=== PATIENT | female | born 1995 | race Caucasian/White ===

== ENCOUNTER 2017-05-25 09:52 | Emergency (ER) | payer SELFPAY ==
[~2017-05-25] VITALS: Ht 160 cm; Wt 61.2 kg
[2017-05-25] MEDS ORDERED: DEXAMETHASONE PF 10 MG/ML (DECADRON) VIAL IM STA (10:09)
[2017-05-25] MEDS ORDERED: KETOROLAC 60 MG/2 ML VIAL IM STA (10:09)
--- NOTE | 2017-05-25 10:15 | ED General ---
General Chief Complaint: Cough/Cold/Flu Symptoms Stated Complaint: BODY ACHES,NECK AND THROAT PAIN Source of Information: Patient Exam Limitations: No Limitations History of Present Illness Time Seen by Provider: 09:58 Initial Comments Here with report of sore throat, fever and body aches, nasal congestion and bilateral ear pain. No report of cough or breathing problems. She has not taken anything for the fever pain today. Reports that she is very uncomfortable. Reports waking up this way this morning. She does work in the public. Denies nausea or vomiting. Timing/Duration: 4-6 Hours Severity: Moderate Associated Systoms: No Cough, Fever/Chills, No Nausea/Vomiting, No Shortness of Air Allergies and Home Medications Allergies Coded Allergies: No Known Drug Allergies (Unverified , 05/25/17) Home Medications No Active Prescriptions or Reported Meds Constitutional: see HPI EENTM: ear pain, nose congestion, see HPI, throat pain, throat swelling Respiratory: No cough, No short of breath Cardiovascular: no symptoms reported Gastrointestinal: no symptoms reported Genitourinary: no symptoms reported Musculoskeletal: see HPI Skin: no symptoms reported Past Qokurzz-Wublvw-Wpyvre Hx Patient Social History Alcohol Use: Denies Use Recreational Drug Use: No Smoking Status: Never a Smoker Recent Foreign Travel: No Contact w/Someone Who Travel: No Surgeries HX Surgeries: Yes Surgeries: Appendectomy Respiratory Hx Respiratory Disorders: No Cardiovascular Hx Cardiac Disorders: No Neurological Hx Neurological Disorders: No Genitourinary Hx Genitourinary Disorders: No Gastrointestinal Hx Gastrointestinal Disorders: No Musculoskeletal Hx Musculoskeletal Disorders: No Endocrine Hx Endocrine Disorders: No Reviewed Nursing Assessment Reviewed/Agree w Nursing PMH: Yes Family Medical History Significant Family History: No Pertinent Family Hx Physical Exam Vital Signs Capillary Refill : General Appearance: WD/WN, Mild Distress (throat pain) HEENT: Pharyngeal Erythema, Other (few posterior lesions posterior pharynx with moderate redness and slight uvular swelling. Difficulty with swallowing, talking or breathing.) Neck: Normal Inspection, Non Tender Respiratory: Lungs Clear, Normal Breath Sounds Cardiovascular: No Murmur, Tachycardia Gastrointestinal: Non Tender, Soft Neurologic/Psychiatric: Alert, Oriented x3 Progress/Results/Core Measures Progress Note : Progress Note Seen and evaluated. We discussed a variety evaluation options and treatments as this may be strep pharyngitis versus viral pharyngitis. Patient is in a moderate amount of pain. Ultimately we decided on Toradol 60 mg IM and Decadron 10 mg IM. We will prescribe outpatient antibiotics. Discharged home with return precautions. Patient verbalize understanding instructions and agreement with plan. Departure Impression Impression: Primary Impression: Pharyngitis Qualified Codes: J02.9 - Acute pharyngitis, unspecified Disposition: HOME, SELF-CARE Condition: Stable Departure-Patient Inst. Decision time for Depature: 10:14 Referrals: NO,LOCAL PHYSICIAN (PCP/Family) Primary Care Physician Patient Instructions: Bacterial Upper Respiratory Infection, Adult (DC), Viral Pharyngitis (DC), Fever, Adult (DC) Add. Discharge Instructions: All discharge instructions reviewed with patient and/or family. Voiced understanding. You may take ibuprofen 800 mg every 8 hours as needed for pain and fever. You may also take Tylenol 1000 mg every 8 hours as needed for fever or pain. Drink plenty of fluids. Take other medications as prescribed. Follow-up with your Dr. in a few days for recheck. Return for worse pain, fever, vomiting, weakness , breathing or swallowing problems or other concerns as needed. Scripts Amoxicillin (Amoxicillin) 500 Mg Capsule 500 MG PO TID, #21 CAP 0 Refills Prov: MINERVA CRISTINA MD 05/25/17 Work/School Note: Local Medical Staff Listing MINERVA CRISTINA MD May 25, 2017 10:15
[2017-05-25] MEDS ORDERED: AMOX500C2 PO (10:16)
[2017-05-25 10:29] VITALS: BP 123/78
== END 2017-05-25 10:29 | disposition home or self-care (01) ==
LOC: ER 09:55
DX: J02.9 Acute pharyngitis, unspecified (principal); Z90.49 Acquired absence of other specified parts of digestive tract
CPT/HCPCS: 99284

== ENCOUNTER → 2017-10-09 | Outpatient (CLI) | payer OTHER ==
[~2017-10-09] MED LIST: AMOX500C2 PO
--- NOTE | 2017-10-09 11:14 | Diagnostic Imaging Report ---
First trimester OB ultrasound. INDICATION: Dating. FINDINGS: There is a normal-appearing single intrauterine . An embryo is seen with cardiac activity at 165 beats per minute. The crown-rump length is at 9 weeks and 2 days. ROCKY is 05/12/2018. There is no subchorionic hemorrhage. The right ovary appears normal. The left ovary is obscured by bowel gas.. IMPRESSION: Live single intrauterine . Dictated by: Dictated on workstation # [id number]
== END ==
LOC: RAD 10:39
PROVIDERS: ATTEND Family Medicine
DX: Z34.01 Encounter for supervision of normal first pregnancy, first trimester (principal); Z3A.09 9 weeks gestation of pregnancy; Z12.4 Encounter for screening for malignant neoplasm of cervix
CPT/HCPCS: 76801

== ENCOUNTER 2018-02-20 16:32 | Outpatient (CLI) | payer MEDICAID | END 2018-02-20 17:55 | disposition home or self-care (01) | LOC: WSo 16:32 | PROVIDERS: ATTEND Obstetrics & Gynecology | DX: Z31.82 Encounter for Rh incompatibility status (principal) | CPT/HCPCS: 96372 ==

== ENCOUNTER 2018-04-18 19:13 | Outpatient (CLI) | payer MEDICAID ==
[~2018-04-18] VITALS: Ht 162.6 cm; Wt 83.9 kg
[2018-04-18 19:17] VITALS: BP 126/81
[2018-04-18] MEDS ORDERED: PREN-142 PO (19:44)
[2018-04-18] MEDS ORDERED: SERT100T PO (19:45)
--- NOTE | 2018-04-19 11:56 | Physician Query-Final Dx ---
MINDY DEUTSCH 04/19/18 1156: Clinic Account Progress/Dx Physician Query: Please give diagnosis Date of Service Apr 18, 2018 at 19:13 SHAN FOSS MD 04/19/18 1259: Clinic Account Progress/Dx DIAGNOSIS: Diagnosis Decreased movement MINDY DEUTSCH Apr 19, 2018 11:56 SHAN FOSS MD Apr 19, 2018 12:59
[2018-05-01] MEDS ORDERED: OXYC-471 PO (07:20)
[2018-05-01] MEDS ORDERED: IBUP-1780 PO (07:20)
[2018-05-01] MEDS ORDERED: DOCU100C37 PO (07:20)
== END 2018-04-18 19:50 | disposition home or self-care (01) ==
LOC: LDRP 19:13 → WSo 19:13
PROVIDERS: ATTEND Obstetrics & Gynecology
DX: O36.8130 Decreased fetal movements, third trimester, not applicable or unspecified (principal); Z3A.37 37 weeks gestation of pregnancy
CPT/HCPCS: 99213

== ENCOUNTER 2018-04-29 22:31 | Inpatient (IN) | payer MEDICAID ==
[~2018-04-29] VITALS: Ht 162.6 cm; Wt 86.3 kg
[~2018-04-29 22:31] MED LIST changes: +PREN-142 PO; +SERT100T PO
[2018-04-29 22:45] VITALS: BP 124/81
--- OUTSIDE RECORDS SUMMARY | 2018-04-29 22:50 | XMS REPORT ---
Author Author ABDULLAHI CARRERO Organization [facility] Address [address] [place] [address] Care Team Providers Care Client Support Consultant Name Role Phone ABDULLAHI CARRERO Unavailable PROBLEMS Type Condition ICD9-CM Code [id number] Code Onset Dates Condition Status SNOMED Code Problem Herpes simplex vulvovaginitis A60.04 Active 21174698 ALLERGIES No Known Allergies ENCOUNTERS Encounter Location Date Diagnosis [place] [id number] [place] [address] 7860 Oct, [place] [address] [id number] [place] [address] 12573[address] 2638 Sep, Pap smear for cervical cancer screening Z12.4 ; Normal , first Z34.00 ; Herpesviral infection, unspecified B00.9 ; Other viral diseases complicating , first trimester O98.511 and 8 weeks gestation of Z3A.08 [place] [id number] [place] [address] 13967- 4201 Sep, [place] [address] [id number] [place] [address] 81014- 5367 Aug, Screening for deficiency anemia Z13.0 [place] [id number] [place] [address] 03090- 4023 Aug, [place] [id number] [place] [address] 33302- 8784 Aug, [place] [address] [address] Aug, [place] [id number] [place] [address] 65983- 3106 Aug, Encounter for test, result unknown Z32.00 [place] [address] [facility] [id number] [place] [address] Jun, Sore throat J02.9 and Strep pharyngitis J02.0 [facility] [address] [facility] [id number] [place] [address] May, Herpes simplex vulvovaginitis A60.04 and Sore throat J02.9 IMMUNIZATIONS No Known Immunizations SOCIAL HISTORY Never Assessed REASON FOR VISIT OB-intake -- alaina malcolm PLAN OF CARE Activity Details Follow Up 4 Weeks Reason: Pending Test PAP REFLEX TO HPV IF ASCUS VITAL SIGNS Height 63 in 2017-10-01 Weight 139.4 lbs 2017-10-01 Temperature 99.8 degrees Fahrenheit 2017-10-01 Heart Rate 78 bpm 2017-10-01 Respiratory Rate 18 2017-10-01 BMI 24.694 kg/m2 2017-10-01 Blood pressure systolic 126 mmHg 2017-10-01 Blood pressure diastolic 78 mmHg 2017-10-01 MEDICATIONS Medication Instructions Dosage Frequency Start Date End Date Duration Status Vitamins - (Dis) Active RESULTS No Results PROCEDURES Procedure Date Ordered Result Body Site No Charge Oct 01, 2017 LAB NOT BILLED BY [facility] Oct 01, 2017 URINALYSIS, AUTO, W/O SCOPE Oct 01, 2017 SPECIMEN HANDLING Oct 01, 2017 VENIPUNCT, ROUTINE* Oct 01, 2017 INSTRUCTIONS MEDICATIONS ADMINISTERED No Known Medications MEDICAL (GENERAL) HISTORY Type Description Date Medical History Genital Herpes Medical History Seasonal allergies Surgical History Appendectomy 2006 Surgical History Benign tumors removed from right leg 2002 Hospitalization History post appe surgery 2005
--- OUTSIDE RECORDS SUMMARY | 2018-04-29 22:50 | XMS REPORT ---
Author Author FENG COBB [facility] Address [address] [place] [address] Care Team Providers Care Slot Attendant Name Role Phone FENG COBB Unavailable PROBLEMS Type Condition ICD9-CM Code GBQ08-EM Code Onset Dates Condition Status SNOMED Code Problem Herpes simplex vulvovaginitis A60.04 Active 61995810 ALLERGIES No Known Allergies ENCOUNTERS Encounter Location Date Diagnosis [place] [id number] [place] [address]- [address] Oct, [place] [id number] [place] [address] 74[address]- 4[address] Sep, Pap smear for cervical cancer screening Z12.4 ; Normal , first Z34.00 ; Herpesviral infection, unspecified B00.9 ; Other viral diseases complicating , first trimester O98.511 and 8 weeks gestation of Z3A.08 [place] [address] [place] [address] [id number] [place] [address] 20993- 2719 Sep, [place] [address] [id number] [place] [address] 45673- 3065 Aug, Screening for deficiency anemia Z13.0 [place] [address] [address] [id number] [place] [address] 44876- 5216 Aug, [place] [address] [place] [address] [id number] [place] [address] 87309- 8830 Aug, [place] [address] [place] [address] [id number] [place] [address] 56659- 1051 Aug, [place] [address] [place] [address] [id number] [place] [address] 52917- 7357 Aug, Encounter for test, result unknown Z32.00 [facility] [address] [facility] [id number] [place] [address] Jun, Sore throat J02.9 and Strep pharyngitis J02.0 [facility] [address] [facility] [id number] [place] [address] May, Herpes simplex vulvovaginitis A60.04 and Sore throat J02.9 IMMUNIZATIONS No Known Immunizations SOCIAL HISTORY Never Assessed REASON FOR VISIT pt was diagnosed with genital herpes 5 years ago. last outbreak was 1 year ago. currently pt is having dysuria, vaginal itching, and a lot of swelling. she is wanting treated for herpes today. doesnt have a PCP. bra[place]en PLAN OF CARE Activity Details Follow Up prn Reason: VITAL SIGNS Height 63 in 2017-06-08 Weight 135.0 lbs 2017-06-08 Temperature 98.6 degrees Fahrenheit 2017-06-08 Heart Rate 80 bpm 2017-06-08 Respiratory Rate 18 2017-06-08 BMI 23.91 kg/m2 2017-06-08 Blood pressure systolic 118 mmHg 2017-06-08 Blood pressure diastolic 68 mmHg 2017-06-08 MEDICATIONS Medication Instructions Dosage Frequency Start Date End Date Duration Status Acyclovir 400 mg orally 3 times a day one tab 8h May, Jun, 10 days Active RESULTS No Results PROCEDURES No Known procedures INSTRUCTIONS MEDICATIONS ADMINISTERED No Known Medications MEDICAL (GENERAL) HISTORY Type Description Date Medical History Genital Herpes Medical History Seasonal allergies Surgical History Appendectomy 2006 Surgical History Benign tumors removed from right leg 2002 Hospitalization History post appe surgery 2005
--- OUTSIDE RECORDS SUMMARY | 2018-04-29 22:51 | XMS REPORT ---
Author Author ABDULLAHI CARRERO Organization [facility] Address [address] [place] [address] Care Team Providers Care Cancer Spec Name Role Phone ABDULLAHI CARRERO Unavailable PROBLEMS Type Condition ICD9-CM Code WEU70-XA Code Onset Dates Condition Status SNOMED Code Problem Herpes simplex vulvovaginitis A60.04 Active 22651298 ALLERGIES No Information ENCOUNTERS Encounter Location Date Diagnosis [facility] [id number] [place] [address] 54395- 7762 Oct, [place] [address] [place] [address] [id number] [place] [address] 66813- 3574 Sep, Pap smear for cervical cancer screening Z12.4 ; Normal , first Z34.00 ; Herpesviral infection, unspecified B00.9 ; Other viral diseases complicating , first trimester O98.511 and 8 weeks gestation of Z3A.08 [place] [address] [id number] [place] [address] 78324- 2149 Sep, [place] [address] [place] [address] [id number] [place] [address] 65316- 6444 Aug, Screening for deficiency anemia Z13.0 [place] [id number] [place] [address] 33948- 4585 Aug, [place] [id number] [place] [address] 80899- 6389 Aug, [place] [address] 0[address]94- 5413 Aug, [place] [address] [place] [address] [id number] [place] [address] 00442- 1017 Aug, Encounter for test, result unknown Z32.00 [place] [address] [facility] [id number] [place] [address] Jun, Sore throat J02.9 and Strep pharyngitis J02.0 [facility] [address] [facility] [id number] [place] [address] May, Herpes simplex vulvovaginitis A60.04 and Sore throat J02.9 IMMUNIZATIONS No Known Immunizations SOCIAL HISTORY Never Assessed REASON FOR VISIT OB PLAN OF CARE VITAL SIGNS MEDICATIONS Unknown Medications RESULTS No Results PROCEDURES No Known procedures INSTRUCTIONS MEDICATIONS ADMINISTERED No Known Medications MEDICAL (GENERAL) HISTORY Type Description Date Medical History Genital Herpes Medical History Seasonal allergies Surgical History Appendectomy 2006 Surgical History Benign tumors removed from right leg 2002 Hospitalization History post appe surgery 2006
--- OUTSIDE RECORDS SUMMARY | 2018-04-29 22:51 | XMS REPORT ---
Author Author ABDULLAHI CARRERO Organization [facility] Address [address] [place] [address] Care Team Providers Care Wood Grinder Operator Name Role Phone ABDULLAHI CARRERO Unavailable PROBLEMS Type Condition ICD9-CM Code IYP12-DJ Code Onset Dates Condition Status SNOMED Code Problem Herpes simplex vulvovaginitis A60.04 Active 51730214 ALLERGIES No Information ENCOUNTERS Encounter Location Date Diagnosis [place] [address] [place] [address] [id number] [place] [address] 07944- 0922 Oct, [place] [id number] [place] [address] 66356- 0521 Sep, Pap smear for cervical cancer screening Z12.4 ; Normal , first Z34.00 ; Herpesviral infection, unspecified B00.9 ; Other viral diseases complicating , first trimester O98.511 and 8 weeks gestation of Z3A.08 [place] [address] [id number] [place] [address] 60699- 6051 Sep, [place] [address] [place] [address] [id number] [place] [address] 35752- 0807 Aug, Screening for deficiency anemia Z13.0 [place] [address] [address] [id number] [place] [address] 63206- 9754 Aug, [place] [address] [id number] [place] [address] 19010- 2642 Aug, [place] [address] 18[address]- 8005 Aug, [place] [address] [place] [address] [id number] [place] [address] 59822- 1961 Aug, Encounter for test, result unknown Z32.00 [place] [address] [facility] [id number] [place] [address] Jun, Sore throat J02.9 and Strep pharyngitis J02.0 [facility] [address] [facility] [id number] [place] [address] May, Herpes simplex vulvovaginitis A60.04 and Sore throat J02.9 IMMUNIZATIONS No Known Immunizations SOCIAL HISTORY Never Assessed REASON FOR VISIT PLAN OF CARE VITAL SIGNS MEDICATIONS Unknown Medications RESULTS No Results PROCEDURES No Known procedures INSTRUCTIONS MEDICATIONS ADMINISTERED No Known Medications MEDICAL (GENERAL) HISTORY Type Description Date Medical History Genital Herpes Medical History Seasonal allergies Surgical History Appendectomy 2006 Surgical History Benign tumors removed from right leg 2002 Hospitalization History post appe surgery 2006
--- OUTSIDE RECORDS SUMMARY | 2018-04-29 22:51 | XMS REPORT ---
Author Author LINSEYOPHELIAMIGUEL ANGEL [facility] Address [address] [place] [address] Care Team Providers Care Counter Maker Name Role Phone MIGUEL ANGEL STILES Unavailable PROBLEMS Type Condition ICD9-CM Code VYE30-LH Code Onset Dates Condition Status SNOMED Code Problem Herpes simplex vulvovaginitis A60.04 Active 84247367 ALLERGIES No Known Allergies ENCOUNTERS Encounter Location Date Diagnosis [place] [address] [place] [id number] [place] [address] 75050- 5186 Oct, [place] [address] [place] [address] [id number] [place] [address] 78877- 2430 Sep, Pap smear for cervical cancer screening Z12.4 ; Normal , first Z34.00 ; Herpesviral infection, unspecified B00.9 ; Other viral diseases complicating , first trimester O98.511 and 8 weeks gestation of Z3A.08 [place] [id number] [place] [address] 86387- 5998 Sep, [place] [address] [id number] [place] [address] 88936- 1182 Aug, Screening for deficiency anemia Z13.0 [place] [id number] [place] [address] 07624- 4156 Aug, [place] [id number] [place] [address] 69152- 3304 Aug, [place] [address] 74[address]- 8224 Aug, [place] [address] [id number] [place] [address] 45925- 7147 Aug, Encounter for test, result unknown Z32.00 [place] [address] [facility] [id number] [place] [address] Jun, Sore throat J02.9 and Strep pharyngitis J02.0 [facility] [address] [facility] [id number] [place] [address] May, Herpes simplex vulvovaginitis A60.04 and Sore throat J02.9 IMMUNIZATIONS No Known Immunizations SOCIAL HISTORY Never Assessed REASON FOR VISIT sore throat/ear pain , white puss pocket in throat, fever, swollen lymph nodes - ---[place],[facility] PLAN OF CARE Activity Details Follow Up prn Reason:needs to est care VITAL SIGNS Height 63 in 2017-07-02 Weight 134.7 lbs 2017-07-02 Temperature 98.9 degrees Fahrenheit 2017-07-02 Heart Rate 77 bpm 2017-07-02 Respiratory Rate 18 2017-07-02 BMI 23.86 kg/m2 2017-07-02 Blood pressure systolic 116 mmHg 2017-07-02 Blood pressure diastolic 69 mmHg 2017-07-02 MEDICATIONS Medication Instructions Dosage Frequency Start Date End Date Duration Status Amoxicillin 500 mg Orally every 12 hrs 1 capsule 12h Jun, Jun, 10 day(s) Active RESULTS No Results PROCEDURES Procedure Date Ordered Result Body Site STREP A ASSAY W/OPTIC Jul 02, 2017 INSTRUCTIONS MEDICATIONS ADMINISTERED No Known Medications MEDICAL (GENERAL) HISTORY Type Description Date Medical History Genital Herpes Medical History Seasonal allergies Surgical History Appendectomy 2006 Surgical History Benign tumors removed from right leg 2002 Hospitalization History post appe surgery 2005
[2018-04-29] MEDS ORDERED: D5 LR IV SOLUTION 1,000 ML IV ONE (22:54)
[2018-04-29] MEDS ORDERED: D5 LR IV SOLUTION 1,000 ML IV SCH (23:20)
[2018-04-29 23:27] LABS: BASOPHILS % (AUTO) 0 % (0-10); EOSINOPHILS # (AUTO) 0.1 10^3/uL (0.0-0.3); EOSINOPHILS % (AUTO) 1 % (0-10); HEMATOCRIT 33 % (35-52); HEMOGLOBIN 11.5 G/DL (11.5-16.0); LYMPHOCYTES # (AUTO) 2.1 X 10^3 (1.0-4.0); LYMPHOCYTES % (AUTO) 14 % (12-44); MEAN CORPUSCULAR HEMOGLOBIN 32 PG (25-34); MEAN CORPUSCULAR HGB CONC 35 G/DL (32-36); MEAN CORPUSCULAR VOLUME 91 FL (80-99); MEAN PLATELET VOLUME 11.3 FL (7.4-10.4); MONOCYTES # (AUTO) 1.4 X 10^3 (0.0-1.0); MONOCYTES % (AUTO) 9 % (0-12); NEUTROPHILS # (AUTO) 11.3 X 10^3 (1.8-7.8); NEUTROPHILS % (AUTO) 76 % (42-75); PLATELET COUNT 199 10^3/uL (130-400); RED BLOOD COUNT 3.62 10^6/uL (4.35-5.85); RED CELL DISTRIBUTION WIDTH 13.2 % (10.0-14.5); WHITE BLOOD COUNT 14.8 10^3/uL (4.3-11.0)
[2018-04-30] VITALS (62 sets, daily range): BP systolic 111–160; BP diastolic 50–86
[2018-04-30] MEDS ORDERED: SUFENTA 0.6MCG/ML BUPIVA 0.125 100 ML ONE (01:14)
[2018-04-30] MEDS ORDERED: hydrOXYzine (ATARAX) 10 MG TAB PO ONE (01:15)
[2018-04-30] MEDS ORDERED: BUPIVACAINE 0.25% 30 ML (SENSORCAINE) VIAL ONE (01:37)
[2018-04-30] MEDS ORDERED: fentaNYL INJECTION 100 MCG/2 ML AMP ONE (01:37)
[2018-04-30] MEDS ORDERED: LACTATED RINGERS 1,000 ML IV ONE ×2 (02:12)
[2018-04-30] MEDS ORDERED: NALOXONE 0.4 MG/ML 1 ML (NARCAN) VIAL IV PRN (02:15)
[2018-04-30] MEDS ORDERED: EPIDURAL (SUFENTA 0.6MCG/ML BUPIVA 0.125%) 100 ML BAG EPI PRN (02:15)
[2018-04-30] MEDS ORDERED: ONDANSETRON 4 MG/2 ML (SDV) Z0FRAN IV PRN (02:15)
[2018-04-30] MEDS ORDERED: ACETAMINOPHEN 500 MG TAB (TYLENOL) PO PRN (02:45)
[2018-04-30] MEDS ORDERED: OXYTOCIN/NORMAL SALINE 500 ML IV SCH ×2 (03:31→11:35)
[2018-04-30] MEDS ORDERED: CATHETER FLUSH 10 ML SYR IV SCH (06:00)
--- NOTE | 2018-04-30 07:05 | History & Physical ---
History and Physical Date Seen by Provider: Apr 30, 2018 Time Seen by Provider: 07:03 This patient is a 22-year-old 1 white female with a due date is April putting her at 30 8/2 weeks' gestation on admission. She reported rupture membranes at 9 p.m. on April 29. She presented with overt rupture membranes. She was having occasional contraction. She denies any bleeding. She's had no problems with this . GBS culture was negative. Allergies are none Medications are vitamins and Zoloft Past medical history, past surgical history, obstetric history, family history, and social histories are per the antepartum record HEENT exam is normal Neck is supple no lymphadenopathy no thyromegaly Abdomen is gravid soft nontender nondistended Extremities show no clubbing cyanosis. There is no Homans sign. Pelvic exam currently shows a cervix 5 cm dilated 80 percent effaced anterior somewhat soft presenting part is the vertex at the -1 station monitor shows contractions every 2-4 minutes with Pitocin now 18 mU/m heart rate pattern is reassuring with frequent accelerations. Very occasional variable Laboratory Tests 04/29/18 23:10 Assessment and plan term 38+ weeks gestation with spontaneous rupture membranes of clear fluid. Patient presented with irregular contractions she has now been augmented with Pitocin as progressing adequately. She has no epidural and is comfortable. Anticipation is for vaginal delivery PROM at 38+ weeks gestation Allergies and Home Medications Allergies Coded Allergies: No Known Drug Allergies (Unverified , 05/25/17) Home Medications Vit No.124/Iron/FA 1 Each Tablet, 1 EACH PO DAILY, (Reported) Sertraline HCl 100 Mg Tablet, 100 MG PO DAILY, (Reported) Patient Home Medication List Home Medication List Reviewed: Yes Clinical Quality Measures DVT/VTE Risk/Contraindication: Risk Factor Score Per Nursin RFS Level Per Nursing on Admit: 1=Low/No VTE PPX SHAN FOSS MD Apr 30, 2018 7:05 am
[2018-04-30] MEDS ORDERED: LIDOCAINE/EPI 2% 1:200,00 (XYLOCAINE) 10 ML VIAL ONE (10:03)
[2018-04-30] MEDS ORDERED: MEASLES,MUMPS,RUBELLA 1 EA INJ SC ONE (11:45)
[2018-04-30] MEDS ORDERED: ONDANSETRON 4 MG/2 ML (SDV) Z0FRAN IVP PRN (11:45)
[2018-04-30] MEDS ORDERED: BENZOCAINE/MENTHOL (DERMOPLAST) 56 ML CAN TP PRN (11:45)
[2018-04-30] MEDS ORDERED: TETANUS,DIPTH,PERTUSS P/F (BOOSTRIX) 0.5 ML VIAL IM ONE (11:45)
[2018-04-30] MEDS: KETOROLAC 30 MG/ML VIAL IV SCH ×2 (13:15→20:30)
[2018-04-30] MEDS: oxyCODONE/APAP 5/325MG (PERCOCET 5) TABLET PO PRN ×2 (14:55→21:49)
--- NOTE | 2018-04-30 18:00 | OPERATIVE REPORT ---
DATE OF SERVICE: 04/30/2018 DELIVERY NOTE The patient delivered by term spontaneous vaginal delivery a viable female infant with Apgars of 5, 6 and 8 at 1, 5 and 10 minutes and with weight of 7 pounds 7 ounces, time of 10:31 and a cord blood pH of 7.13. There were fairly significant decels while the patient was pushing. She pushed less than 15 minutes. The infant was somewhat lethargic and required some resuscitation. The hydraulic design engineer was called as was respiratory therapy. The was bulb suctioned on delivery of the head and again on completion of delivery. The umbilical cord remained pulsatile for a couple of minutes after completion of delivery of the . The was dried and stimulated during that time. When the cord became pulseless, it was doubly clamped and the passed promptly to Carley Cortes, the pediatric nurse in attendance for delivery at the [facility] for resuscitation. The placenta was delivered spontaneously Neumann. It was normal with a 3-vessel cord. The cervix, vagina, rectum and perineum were examined and found to be intact except for a midline episiotomy that was performed at the patient's request when the hymen and the perineum began to tear and the patient was unable to expel the fetus. The episiotomy was performed and delivery ensued promptly. The episiotomy was repaired with a single suture of 3-0 Vicryl in the usual manner. Estimated blood loss for delivery was around 250 mL. The patient tolerated the delivery well as well as repair and she remained in the LDR. The baby had been taken stable to the full term nursery under the care of Sebastian harrison. Job ID: [id number] DocumentID: [id number] Dictated Date: 04/30/2018 12:09:59 Registered Radiation Therapist Date: 04/30/2018 17:59:34 Dictated By: SHAN FOSS MD MTDD
[2018-04-30] MEDS: DOCUSATE SODIUM 100 MG (COLACE) CAP PO SCH (20:30)
[2018-05-01 00:10] VITALS: BP 107/61
[2018-05-01] MEDS: KETOROLAC 30 MG/ML VIAL IV SCH (02:06)
[2018-05-01 04:25] VITALS: BP 127/74
[2018-05-01] MEDS ORDERED: CALCIUM CARBONATE 500 MG (TUMS) TAB.CHEW PO ONE (04:30)
--- NOTE | 2018-05-01 07:18 | Progress Note-Standard ---
Standard Progress Note Progress Notes/Assess & Plan Date Seen by Provider: May 01, 2018 Time Seen by Provider: 07:17 Progress/Assessment & Plan Patient is without complaint. She is ambulating, voiding, tolerating oral intake well, has good pain control. Patient denies chest pain, denies shortness of breath, denies nausea vomiting, and denies headache. Vital Signs 05/01/18 04:25 Temp 98.2 Pulse 96 Resp 18 B/P (MAP) 127/74 (91) Pulse Ox 97 O2 Delivery Room Air Vital signs are stable. Patient is afebrile. Fundus is firm below the umbilicus and nontender. Extremities show no clubbing or cyanosis. There is no Homans sign. Assessment and plan day number 1 status post term spontaneous vaginal delivery doing well. Plan is for routine convalescence care today and consider discharge home tomorrow SHAN FOSS MD May 01, 2018 7:18 am
[2018-05-01] MEDS ORDERED: DOCU100C37 PO (07:20)
[2018-05-01] MEDS ORDERED: IBUP-1780 PO (07:20)
[2018-05-01] MEDS ORDERED: OXYC-471 PO (07:20)
--- NOTE | 2018-05-01 07:21 | Discharge Instructions ---
Discharge Instructions Discharge Medications New, Converted or Re-Newed RX: RX on Chart Patient Instructions Patient Instructions: As directed Return to The Hospital For: As directed Activity & Diet Discharge Diet: No Restrictions Activity as Tolerated: No Orders-Post D/C & Referrals Follow Up Appt: Call to make follow up appt. for patient in 4 weeks. Activity Per routine post vaginal delivery instructions. Please call in RX to patient pharmacy. Diet as tolerated Patient may shower or tub bathe as desired. SHAN FOSS MD May 01, 2018 7:21 am
--- NOTE | 2018-05-01 07:57 | Anesthesia-Regional Post-Op ---
Regional Patient Condition Mental Status: Alert, Oriented x3 Circulation: Same as Pre-Op Headache: Absent Sensation: Full Recovery Motor Block: Absent Post Op Complications Complications None Follow Up Care/Instructions Patient Instructions None needed. Anesthesia/Patient Condition Patient is doing well, no complaints, stable vital signs, no apparent adverse anesthesia problems. No complications reported per nursing. CLAIRE PEREZ CRNA May 01, 2018 07:57
[2018-05-01 08:00] VITALS: BP 138/93
[2018-05-01] MEDS: IBUPROFEN 800 MG (MOTRIN) TAB PO SCH ×3 (08:08→20:09)
[2018-05-01] MEDS: DOCUSATE SODIUM 100 MG (COLACE) CAP PO SCH ×2 (08:08→20:09)
[2018-05-01 13:50] VITALS: BP_SYST 122; BP_SYST 128; BP_DIAS 83; BP_DIAS 87
[2018-05-01] MEDS: oxyCODONE/APAP 5/325MG (PERCOCET 5) TABLET PO PRN (14:02)
[2018-05-01] MEDS ORDERED: TETANUS,DIPTH,PERTUSS P/F (BOOSTRIX) 0.5 ML VIAL IM ONE (16:44)
[2018-05-01 20:07] VITALS: BP 127/82
[2018-05-02 03:18] VITALS: BP 122/79
[2018-05-02] MEDS: IBUPROFEN 800 MG (MOTRIN) TAB PO SCH ×3 (03:20→16:00)
--- NOTE | 2018-05-02 07:20 | Discharge Summary ---
Discharge Summary Term spontaneous vaginal delivery This patient is a 23-year-old G1 white female who was admitted in the late hours of April 29, 2018 due to spontaneous rupture membranes. She was observed through the night. She is arnaldo with some mild irregularity. She was augmented with Pitocin and subsequently had a term spontaneous vaginal delivery on April 30, 2018. The delivery was uncomplicated. The patient recovered uneventfully. On May 01, 2018 patient was without complaint. She is ambulating, voiding, tolerating oral intake well had good pain control and had routine convalescence care. Now on May 02 patient's day number 2 doing well again she is requesting discharge home she is ambulating, voiding, tolerating oral intake well has good pain control. Her baby may not be discharged and plastic a she will room in Principal diagnoses this hospitalization is term spontaneous vaginal delivery Secondary diagnoses are spontaneous PROM, Operation procedures include monitoring, IV fluids, epidural labor analgesia, term spontaneous vaginal delivery, midline episiotomy and repair. Patient was given appropriate discharge instructions verbally and in writing and a copy those are placed in the chart. Discharge medications are Percocet and Motrin and Colace. Patient is continue her own vitamins Clinical Quality Measures DVT/VTE Risk/Contraindication: Risk Factor Score Per Nursin RFS Level Per Nursing on Admit: 1=Low/No VTE PPX SHAN FOSS MD May 02, 2018 07:20
[2018-05-02] MEDS: DOCUSATE SODIUM 100 MG (COLACE) CAP PO SCH (08:38)
[2018-05-02 08:40] VITALS: BP 121/70
[2018-05-02] MEDS ORDERED: WITCH HAZEL(TUCKS) 40 EA JAR TOP PRN (09:00)
[2018-05-02] MEDS ORDERED: DIBUCAINE (NUPERCAINAL) 1% OINT 30 GM TOP PRN (09:00)
[2018-05-02] MEDS ORDERED: DIBUCAINE (NUPERCAINAL) 1% OINT 30 GM ONE (09:03)
[2018-05-02] MEDS ORDERED: WITCH HAZEL(TUCKS) 40 EA JAR ONE (09:03)
[2018-05-02] MEDS ORDERED: POLYETHYLENE GLYCOL 17 GM (MIRALAX) PACK PO ONE (15:15)
[2018-05-02] MEDS ORDERED: POLYETHYLENE GLYCOL 17 GM (MIRALAX) PACK ONE (15:19)
[2018-05-02 16:00] VITALS: BP 120/70
[2018-05-02] MEDS: oxyCODONE/APAP 5/325MG (PERCOCET 5) TABLET PO PRN (16:04)
[2018-05-02 17:00] VITALS: BP 120/70
== END 2018-05-02 17:00 | disposition home or self-care (01) | DRG 775 ==
LOC: LDRP 22:31 → WSo 22:31 → LDRP 22:46
PROVIDERS: ADMIT Obstetrics & Gynecology; ATTEND Obstetrics & Gynecology
PROC: 10E0XZZ Delivery of Products of Conception, External Approach (ICD-10-PCS; principal; 2018-04-30)
PROC: 0W8NXZZ Division of Female Perineum, External Approach (ICD-10-PCS; 2018-04-30)
DX: O42.02 Full-term premature rupture of membranes, onset of labor within 24 hours of rupture (principal); O76 Abnormality in fetal heart rate and rhythm complicating labor and delivery; Z3A.38 38 weeks gestation of pregnancy; Z37.0 Single live birth; Z23 Encounter for immunization
CPT/HCPCS: 36415; 83033; 85025; 86850; 86900; 86901; 90715; 99212

== ENCOUNTER 2020-12-02 14:41 | Outpatient (CLI) | payer MEDICAID ==
[~2020-12-02] VITALS: Ht 162 cm; Wt 82.8 kg
[~2020-12-02 14:41] MED LIST changes: +DOCU100C37 PO; +IBUP-1780 PO; +OXYC1TAB11 PO
[2020-12-02 15:20] VITALS: BP 119/71
[2020-12-02 16:00] VITALS: BP 119/71
[2020-12-02] MEDS ORDERED: D5 LR IV SOLUTION 1,000 ML IV SCH (17:45)
[2020-12-02] MEDS ORDERED: BUTORPHANOL INJ 2 MG/ML (STADOL) VIAL IV PRN (17:45)
--- NOTE | 2020-12-03 07:54 | Physician Query-Final Dx ---
LOLA BRAVO 12/03/20 0754: Clinic Account Progress/Dx Physician Query: Please give diagnosis Please include # weeks gestation Date of Service Dec 02, 2020 at 14:41 SHAN FOSS MD 12/03/20 1524: Clinic Account Progress/Dx DIAGNOSIS: Diagnosis 34 weeks with false labor LOLA BRAVO Dec 03, 2020 07:54 SHAN FOSS MD Dec 03, 2020 15:24
== END 2020-12-02 18:00 | disposition home or self-care (01) ==
LOC: WSo 14:41 → LDRP 14:42 → WSo 18:00
PROVIDERS: ATTEND Obstetrics & Gynecology
DX: O62.4 Hypertonic, incoordinate, and prolonged uterine contractions (principal); Z3A.35 35 weeks gestation of pregnancy
CPT/HCPCS: 99214

== ENCOUNTER 2020-12-16 11:25 | Inpatient (IN) | payer MEDICAID ==
[2020-12-16] VITALS (28 sets, daily range): BP systolic 110–147; BP diastolic 56–84
[~2020-12-16] VITALS: Ht 162.5 cm; Wt 82.6 kg
[2020-12-16] MEDS ORDERED: D5 LR IV SOLUTION 1,000 ML IV SCH (12:00)
[2020-12-16 13:33] LABS: BASOPHILS # (AUTO) 0.1 10^3/uL (0.0-0.1); BASOPHILS % (AUTO) 1 % (0-10); EOSINOPHILS # (AUTO) 0.1 10^3/uL (0.0-0.3); EOSINOPHILS % (AUTO) 1 % (0-10); HEMATOCRIT 37 % (35-52); HEMOGLOBIN 11.8 g/dL (11.5-16.0); LYMPHOCYTES # (AUTO) 2.3 10^3/uL (1.0-4.0); LYMPHOCYTES % (AUTO) 15 % (12-44); MEAN CORPUSCULAR HEMOGLOBIN 29 pg (25-34); MEAN CORPUSCULAR HGB CONC 32 g/dL (32-36); MEAN CORPUSCULAR VOLUME 91 fL (80-99); MEAN PLATELET VOLUME 10.7 fL (9.0-12.2); MONOCYTES # (AUTO) 1.1 10^3/uL (0.0-1.0); MONOCYTES % (AUTO) 7 % (0-12); NEUTROPHILS # (AUTO) 11.3 10^3/uL (1.8-7.8); NEUTROPHILS % (AUTO) 72 % (42-75); PLATELET COUNT 238 10^3/uL (130-400); WHITE BLOOD COUNT 15.8 10^3/uL (4.3-11.0)
[2020-12-16] MEDS ORDERED: fentaNYL 2 mcg/ml BUPIVA 0.125 100 ML ONE (13:41)
[2020-12-16] MEDS ORDERED: BUPIVACAINE 0.25% 30 ML (SENSORCAINE) VIAL ONE (13:45)
[2020-12-16] MEDS ORDERED: fentaNYL INJECTION 100 MCG/2 ML AMP ONE (13:45)
--- NOTE | 2020-12-16 13:58 | History & Physical ---
History and Physical Date Seen by Provider: Dec 16, 2020 Time Seen by Provider: 13:54 This patient is a 25-year-old multigravid white female who currently is at 37 weeks gestation. She presented with complaint of rupture membranes spontaneously at home at about 10 AM. She was having some contractions but has been having contractions for several weeks. She reports no change in her contractions. On presentation her cervix was dilated 4 cm per the nurse exam. Patient is GBS culture was negative after 35 weeks gestation. This patient has a significant history of anxiety requiring daily Xanax at 0.5 mg every 8 hour she has been trying to taper off of that for the past couple of weeks. She also has significant issues with depression for which she currently takes Prozac This patient also has fairly notable ADHD for which she takes Adderall allergies are none Medications are vitamins/Adderall/Xanax/Prozac Medical social and surgical history is all per the antepartum record HEENT exam is normal Neck is supple no lymphadenopathy no thyromegaly Abdomen is gravid soft nontender nondistended Extremities show no clubbing or cyanosis. There is no Homans' sign. Pelvic exam is pending Assessment and plan 37-week gestation with spontaneous rupture membranes. Patient is to be allowed an epidural and then we will manage actively if necessary to promote delivery. Linotype Operator will be apprised of this patient's medication history. We anticipate a vaginal delivery 27 weeks with spontaneous rupture membranes and early labor Allergies and Home Medications Allergies Coded Allergies: No Known Drug Allergies (Unverified , 05/25/17) Home Medications Vit No.124/Iron/FA 1 Each Tablet, 1 EACH PO DAILY, (Reported) Sertraline HCl 100 Mg Tablet, 100 MG PO DAILY, (Reported) Patient Home Medication List Home Medication List Reviewed: Yes SHAN FOSS MD Dec 16, 2020 13:58
[2020-12-16] MEDS ORDERED: OXYTOCIN PRE-MIX DRIP 500 ML IV SCH ×2 (14:00→18:30)
[2020-12-16] MEDS ORDERED: NALOXONE 0.4 MG/ML 1 ML (NARCAN) VIAL IV PRN (14:00)
[2020-12-16] MEDS ORDERED: fentaNYL 2 mcg/ml BUPIVA 0.125 100 ML IV SCH (14:00)
[2020-12-16] MEDS ORDERED: LACTATED RINGERS 1,000 ML IV ONE (14:00)
[2020-12-16] MEDS ORDERED: CATHETER FLUSH 10 ML SYR IV PRN (14:00)
[2020-12-16 14:01] LABS: BAND NEUTROPHILS 4 %; BASOPHILS % (MANUAL) 0 %; EOSINOPHILS % (MANUAL) 2 %; LYMPHOCYTES % (MANUAL) 16 %; MONOCYTES % (MANUAL) 2 %; NEUTROPHILS % (MANUAL) 76 %; RBC MORPH NORMAL
--- NOTE | 2020-12-16 14:03 | Discharge Inst-Surgical ---
Discharge Inst-Surgical Depart Medication/Instructions New, Converted or Re-Newed RX: RX on Chart Consults/Follow Up Patient Instructions: As directed Orders & Referrals Follow Up Appt: Call to make follow up appt. for patient in 4 weeks. Activity Per routine post vaginal delivery instructions. Please call in RX to patient pharmacy. Patient is to continue her own home medications Diet as tolerated Patient may shower or tub bathe as desired. Activity Activity as Tolerated: No Diet Discharge Diet: No Restrictions SHAN FOSS MD Dec 16, 2020 14:03
[2020-12-16] MEDS ORDERED: OXYC1TAB87 PO (14:04)
[2020-12-16] MEDS ORDERED: IBUP-1780 PO (14:04)
[2020-12-16] MEDS ORDERED: DOCU-143 PO (14:04)
[2020-12-16] MEDS ORDERED: ONDANSETRON 4 MG/2 ML (SDV) Z0FRAN IVP PRN (18:30)
[2020-12-16] MEDS ORDERED: BENZOCAINE/MENTHOL (DERMOPLAST) 60 ML CAN TP PRN (18:30)
[2020-12-16] MEDS ORDERED: TETANUS,DIPTH,PERTUSS P/F (BOOSTRIX) 0.5 ML VIAL IM ONE (18:30)
[2020-12-16] MEDS ORDERED: KETOROLAC 30 MG/ML VIAL IVP SCH (18:30)
[2020-12-16] MEDS ORDERED: MEASLES,MUMPS,RUBELLA 1 EA INJ SC ONE (18:30)
[2020-12-16] MEDS: DOCUSATE SODIUM 100 MG (COLACE) CAP PO SCH (21:33)
[2020-12-16] MEDS: oxyCODONE/APAP 5/325MG (PERCOCET 5) TABLET PO PRN (21:34)
--- NOTE | 2020-12-16 23:19 | OPERATIVE REPORT ---
DATE OF SERVICE: 12/16/2020 DELIVERY NOTE The patient delivered by term spontaneous vaginal delivery a viable female infant with Apgars of 2, 6 and 8 at 1, 5 and 10 minutes respectively. time was 1747. The infant was delivered over a first-degree perineal laceration and under bilateral periurethral lacerations under epidural analgesia. Weight was 7 pounds and 9 ounces. Cord blood pH is pending. The infant was bulb suctioned on completion of delivery, the umbilical cord when relatively pulseless was doubly clamped, the father cut the cord, the baby was passed to mom's abdomen. The placenta delivered spontaneously Neumann. It was normal with a 3-vessel cord. There may have been some evidence of small area of abruption virtue of adherent clot and less than 5% of the maternal surface of the placenta. Placenta was sent to pathology for permanent section. The cervix, vagina, rectum, and perineum were examined and found intact, except for the laceration as noted above. Both periurethral lacerations and the perineal laceration were repaired under the epidural analgesia with two sutures of 3-0 Vicryl Rapide in the usual manner with a running locked suture. Sponge and needle counts were correct on completion of the delivery and the repair. Blood loss was 150 mL. The patient tolerated the delivery well and remained in the LDR. The baby remained with the mom. Job ID: [id number] DocumentID: [id number] Dictated Date: 12/16/2020 19:19:37 Metal Mine Inspector Date: 12/16/2020 23:18:57 Dictated By: SHAN FOSS MD
[2020-12-17 02:05] VITALS: BP 119/72
[2020-12-17] MEDS ORDERED: IBUPROFEN 800 MG (MOTRIN) TAB PO ONE ×2 (04:11→09:50)
[2020-12-17] MEDS: IBUPROFEN 800 MG (MOTRIN) TAB PO SCH ×4 (04:14→22:22)
[2020-12-17] MEDS: oxyCODONE/APAP 5/325MG (PERCOCET 5) TABLET PO PRN ×2 (04:20→19:55)
--- NOTE | 2020-12-17 07:23 | Anesthesia-Regional Post-Op ---
Regional Patient Condition Mental Status: Alert, Oriented x3 Circulation: Same as Pre-Op Headache: Absent Sensation: Full Recovery Motor Block: Absent Post Op Complications Complications None Follow Up Care/Instructions Patient Instructions None needed. Anesthesia/Patient Condition Patient is doing well, no complaints, stable vital signs, no apparent adverse anesthesia problems. No complications reported per nursing. SKY PLUMMER CRNA Dec 17, 2020 07:23
[2020-12-17] MEDS: DOCUSATE SODIUM 100 MG (COLACE) CAP PO SCH ×2 (09:58→19:55)
[2020-12-17 10:00] VITALS: BP 113/62
[2020-12-17 14:00] VITALS: BP 121/65
[2020-12-17 16:30] VITALS: BP 121/69
[2020-12-17 22:20] VITALS: BP 122/67
[2020-12-18 04:55] VITALS: BP 116/74
[2020-12-18] MEDS: IBUPROFEN 800 MG (MOTRIN) TAB PO SCH ×2 (04:55→10:40)
[2020-12-18] MEDS: oxyCODONE/APAP 5/325MG (PERCOCET 5) TABLET PO PRN ×2 (09:03→14:06)
[2020-12-18] MEDS: DOCUSATE SODIUM 100 MG (COLACE) CAP PO SCH (10:40)
[2020-12-18 10:41] VITALS: BP 117/67
== END 2020-12-18 14:20 | disposition home or self-care (01) | DRG 807 ==
LOC: LDRP 11:25 → UNDOADMOB 11:25 → EDSTATUS 12:00 → LDRP 20:20
PROVIDERS: ADMIT Obstetrics & Gynecology; ATTEND Obstetrics & Gynecology
PROC: 10E0XZZ Delivery of Products of Conception, External Approach (ICD-10-PCS; principal; 2020-12-16)
PROC: 0HQ9XZZ Repair Perineum Skin, External Approach (ICD-10-PCS; 2020-12-16)
PROC: 0UQMXZZ Repair Vulva, External Approach (ICD-10-PCS; 2020-12-16)
DX: O99.344 Other mental disorders complicating childbirth (principal); Z37.0 Single live birth; Z3A.37 37 weeks gestation of pregnancy; O70.0 First degree perineal laceration during delivery; O71.82 Other specified trauma to perineum and vulva; F41.9 Anxiety disorder, unspecified; F90.9 Attention-deficit hyperactivity disorder, unspecified type
CPT/HCPCS: 36415; 85007; 85027; 86850; 86900; 86901; 99212

== ENCOUNTER 2021-06-12 16:56 | Emergency (ER) | payer SELFPAY ==
[~2021-06-12] VITALS: Ht 167 cm; Wt 74.8 kg
[~2021-06-12 16:56] MED LIST changes: +DOCU-143 PO; +OXYC1TAB87 PO
--- NOTE | 2021-06-12 17:45 | Diagnostic Imaging Report ---
INDICATION: Pelvic pain. COMPARISON: Imaging from same date. TECHNIQUE: Single radiograph of the pelvis dated June 12, 2021. FINDINGS: No acute fracture or dislocation. No destructive osseous process. The sacroiliac joints and pubic symphysis are intact. No suspicious radiopaque foreign body. IMPRESSION: No acute osseous abnormality. Dictated by: Dictated on workstation # [id number]
--- NOTE | 2021-06-12 17:46 | Diagnostic Imaging Report ---
INDICATION: Pain. COMPARISON: Imaging from same date. TECHNIQUE: Three radiographs of the sacrum and coccyx dated June 12, 2021. FINDINGS: No acute fracture or dislocation. No destructive osseous process. The sacroiliac joints and pubic symphysis are intact. No suspicious radiopaque foreign body. IMPRESSION: No acute osseous abnormality. Dictated by: Dictated on workstation # [id number]
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
[2021-06-12] MEDS ORDERED: CYCL10TA9 PO (17:53)
[2021-06-12] MEDS ORDERED: ACHD5005 PO (17:54)
[2021-06-12] MEDS ORDERED: KETOROLAC 60 MG/2 ML VIAL IM ONE (18:00)
[2021-06-12] MEDS ORDERED: RX-ONDANSETRON 4 MG ODT (ZOFRAN) PPK #4 SL STA (18:28)
[2021-06-12] MEDS ORDERED: ONDA4TAB11 PO (18:30)
[2021-06-12 18:36] VITALS: BP 135/94
== END 2021-06-12 18:36 | disposition home or self-care (01) ==
LOC: EDUNIT# 16:56 → ER 17:00
DX: S39.92XA Unspecified injury of lower back, initial encounter (principal); V86.99XA Unspecified occupant of other special all-terrain or other off-road motor vehicle injured in nontraffic accident, initial encounter
CPT/HCPCS: 72170; 72220

== ENCOUNTER → 2022-10-20 | Outpatient (CLI) | payer MEDICAID ==
[~2022-10-20] MED LIST changes: +ACHD5005 PO; +CYCL10TA25 PO; +ONDA4TAB11 PO
--- NOTE | 2022-10-20 16:54 | Diagnostic Imaging Report ---
INDICATION: Evaluate size. Large for dates. TECHNIQUE: Multiple real-time grayscale images were obtained over the gravid uterus. Biophysical profile score was obtained. COMPARISON: None. FINDINGS: A single live intrauterine gestation is present in cephalic presentation. heart tones measure 150 BPM. The placenta is anterior and not low lying. The CHACHA is normal measuring 18.6 cm. The cervix is closed and measures 3.9 cm in length. Biophysical profile score was obtained with a score of 8/8 for 2 points each for CHACHA, movement, breathing, and tone. A dedicated anatomy scan was not performed however no obvious abnormalities are identified. Biometrical measurements are as follows: Biparietal 7.58 cm, age 30 weeks 3 days. Head circumference 27.83 cm, age 30 weeks 4 days. Abdominal circumference 27.44 cm, age 31 weeks 4 days. Femur length 6.06 cm, age 31 weeks 4 days. Sonographic estimate age: 31 weeks 1 days. Sonographic estimated date of delivery: 12/21/2022. Estimated Weight: 1740 gm (+/- 254 gm). LMP percentile: 53%. heart rate: 150 beats per minute. number: 1 of 1. IMPRESSION: 1. Single live intrauterine gestation measuring 31 weeks 1 day with an estimated due date of 12/21/2022. These are within range with the clinical dates. 2. Biophysical profile score of 8/8. Dictated by: Dictated on workstation # [id number]
== END ==
LOC: RAD 10:00
PROVIDERS: ATTEND Obstetrics & Gynecology
DX: O34.593 Maternal care for other abnormalities of gravid uterus, third trimester (principal); Z3A.31 31 weeks gestation of pregnancy
CPT/HCPCS: 76805; 76819

== ENCOUNTER 2022-10-27 12:34 | Outpatient (CLI) | payer MEDICAID ==
[~2022-10-27] VITALS: Ht 162.6 cm; Wt 89.6 kg
[2022-10-27 12:58] VITALS: BP 118/71
[2022-10-27 13:10] VITALS: BP 113/69
[2022-10-27 13:28] VITALS: BP 115/69
[2022-10-27 13:42] VITALS: BP 114/68
[2022-10-27 13:58] VITALS: BP 115/70
[2022-10-27] MEDS ORDERED: ALPR1TAB7 PO (14:11)
[2022-10-27] MEDS ORDERED: CARI1.5C PO (14:11)
[2022-10-27] MEDS ORDERED: DEXT30CA4 PO (14:11)
[2022-10-27] MEDS ORDERED: PROP10TA8 PO (14:11)
[2022-10-27 14:55] VITALS: BP 115/70
--- NOTE | 2022-10-30 08:17 | Physician Query-Final Dx ---
LAWRENCE,10/30/22 0817: Clinic Account Progress/Dx Physician Query: Please give diagnosis Please include # weeks gestation Date of Service Oct 27, 2022 at 12:34 SHAN FOSS MD 10/31/22 0816: Clinic Account Progress/Dx DIAGNOSIS: Diagnosis 31 weeks gestation with false labor LAWRENCE,OctOct 30, 2022 08:17 SHAN FOSS MD Oct 31, 2022 08:16
== END 2022-10-27 14:55 | disposition home or self-care (01) ==
LOC: WSo 12:34 → LDRP 12:34 → WSo 14:55
PROVIDERS: ATTEND Obstetrics & Gynecology
DX: O47.03 False labor before 37 completed weeks of gestation, third trimester (principal); Z3A.31 31 weeks gestation of pregnancy
CPT/HCPCS: 99214

== ENCOUNTER 2022-12-11 06:00 | Inpatient (IN) | payer MEDICAID ==
[~2022-12-11] VITALS: Ht 162.6 cm; Wt 94.6 kg
[2022-12-11] VITALS (50 sets, daily range): BP systolic 94–149; BP diastolic 56–89
[~2022-12-11 06:00] MED LIST changes: +ALPR1TAB7 PO; +CARI1.5C PO; +DEXT30CA4 PO; +PROP10TA8 PO
[2022-12-11 07:18] LABS: BASOPHILS # (AUTO) 0.1 10^3/uL (0.0-0.1); BASOPHILS % (AUTO) 1 % (0-10); EOSINOPHILS # (AUTO) 0.1 10^3/uL (0.0-0.3); EOSINOPHILS % (AUTO) 1 % (0-10); HEMATOCRIT 36 % (35-52); HEMOGLOBIN 11.7 g/dL (11.5-16.0); LYMPHOCYTES # (AUTO) 2.6 10^3/uL (1.0-4.0); LYMPHOCYTES % (AUTO) 20 % (12-44); MEAN CORPUSCULAR HEMOGLOBIN 29 pg (25-34); MEAN CORPUSCULAR HGB CONC 33 g/dL (32-36); MEAN CORPUSCULAR VOLUME 88 fL (80-99); MONOCYTES # (AUTO) 0.9 10^3/uL (0.0-1.0); MONOCYTES % (AUTO) 7 % (0-12); NEUTROPHILS # (AUTO) 8.9 10^3/uL (1.8-7.8); NEUTROPHILS % (AUTO) 69 % (42-75); PLATELET COUNT 235 10^3/uL (130-400)
[2022-12-11 07:20] LABS: BILIRUBIN,URINE NEGATIVE (NEGATIVE); CLARITY,URINE SL CLOUDY; COLOR,URINE YELLOW; GLUCOSE, URINE (UA) NEGATIVE (NEGATIVE); KETONES,URINE NEGATIVE (NEGATIVE); LEUKOCYTE ESTERASE ,URINE 2+ (NEGATIVE); NITRITE,URINE NEGATIVE (NEGATIVE); PROTEIN,URINE 1+ (NEGATIVE)
[2022-12-11 07:33] LABS: BACTERIA,URINE LARGE /HPF; SQUAMOUS EPITHELIAL CELL,UR >50 /HPF; WBC,URINE 25-50 /HPF
[2022-12-11] MEDS: D5 LR IV SOLUTION 1,000 ML IV SCH ×2 (07:40→15:32)
--- NOTE | 2022-12-11 08:04 | History & Physical-OB ---
OB - Chief Complaint & HPI Date/Time Date of Admission: Date of Admission: Dec 11, 2022 at 06:00 Date seen by a Provider: Dec 11, 2022 Time Seen by a Provider: 07:45 Chief Complaint/History OB-Reason for Admission/Chief: Induction of Labor Hx : 3 Hx Para: 2 Expected Date of Delivery: Dec 23, 2022 Gestational Age in Weeks: 38 Gestational Age in Days: 2 Indication for induction: medical complication Admission Nurse Assessment Rev: Yes History of Labs B neg Antibody neg RI RPR NR HBsAg NR HIV NR GC neg GBS neg Allergies and Home Medications Allergies Coded Allergies: No Known Drug Allergies (Unverified , 05/25/17) Patient Home Medication List Home Medication List Reviewed: Yes Cariprazine Hydrochloride (Vraylar) 1.5 Mg Capsule, 1.5 MG PO DAILY, (Reported) Entered as Reported by: GIL DOWNS on 10/27/221410 Last Action: Reviewed Vit No.124/Iron/FA ( Vitamin Tablet) 1 Each Tablet, 1 EACH PO DAILY, (Reported) Entered as Reported by: KATE ZARAGOZA on 04/18/181943 Last Action: Reviewed Discontinued Medications Alprazolam (Alprazolam) 1 Mg Tablet, 1 MG PO TID, (Reported) Discontinued Reason: No Longer Taking Entered as Reported by: GIL DOWNS on 10/27/221410 Last Action: Discontinued Dextroamphetamine/Amphetamine (Dextroamp-Amphet ER 30 mg Cap) 30 Mg Cap.er.24h, 30 MG PO, (Reported) Discontinued Reason: No Longer Taking Entered as Reported by: GIL DOWNS on 10/27/221410 Last Action: Discontinued Propranolol HCl (Propranolol HCl) 10 Mg Tablet, 10 MG PO DAILY, (Reported) Discontinued Reason: No Longer Taking Entered as Reported by: GIL DOWNS on 10/27/221410 Last Action: Discontinued OB - History Hx of Present Care: Yes Ultrasounds: Abnormal US findings (decreasing fluid levels on last US bor derline oligohydramnio CHACHA 4.8) Obstetrical Complications: None Medical Complications: Other (Med use in including Vraylar, Xanax, and Adderall) Patient Past Medical History Bipolar disorder Anxiety Social History/Family History 2nd Hand Smoke Exposure: No Immunizations Influenza Vaccine Up-to-Date: No; Not Current Hepatitis A: Yes Hepatitis B: Yes OB - Admission Exam Physical Exam HEENT: NCAT Heart: Rhythm Normal Lungs: Clear Abdomen: Gravid Extremities: Normal Reflexes: Normal Cervical Dilatation: 3cm Effacement: 75% Station: -1 Membranes: Intact Heart Rate: 130's Accelerations: Accelerations Present Decelerations: No Decelerations Short Term Variability: Present Amusement Park Worker Variability: Average (6-25) Contractions on Admission: 6-10 Minutes Apart Intensity: Mild Labs Laboratory Tests Test 12/11/22 07:00 Range/Units White Blood Count 13.0 H 4.3-11.0 10^3/uL Red Blood Count 4.08 3.80-5.11 10^6/uL Hemoglobin 11.7 11.5-16.0 g/dL Hematocrit 36 35-52 % Mean Corpuscular Volume 88 80-99 fL Mean Corpuscular Hemoglobin 29 25-34 pg Mean Corpuscular Hemoglobin Concent 33 32-36 g/dL Red Cell Distribution Width 15.0 H 10.0-14.5 % Platelet Count 235 130-400 10^3/uL Mean Platelet Volume 12.0 9.0-12.2 fL Immature Granulocyte % (Auto) 4 % Neutrophils (%) (Auto) 69 42-75 % Lymphocytes (%) (Auto) 20 12-44 % Monocytes (%) (Auto) 7 0-12 % Eosinophils (%) (Auto) 1 0-10 % Basophils (%) (Auto) 1 0-10 % Neutrophils # (Auto) 8.9 H 1.8-7.8 10^3/uL Lymphocytes # (Auto) 2.6 1.0-4.0 10^3/uL Monocytes # (Auto) 0.9 0.0-1.0 10^3/uL Eosinophils # (Auto) 0.1 0.0-0.3 10^3/uL Basophils # (Auto) 0.1 0.0-0.1 10^3/uL Immature Granulocyte # (Auto) 0.5 H 0.0-0.1 10^3/uL Urine Color YELLOW Urine Clarity SL CLOUDY Urine pH 6.0 5-9 Urine Specific [place] >=1.030 1.016-1.022 Urine Protein 1+ H NEGATIVE Urine Glucose (UA) NEGATIVE NEGATIVE Urine Ketones NEGATIVE NEGATIVE Urine Nitrite NEGATIVE NEGATIVE Urine Bilirubin NEGATIVE NEGATIVE Urine Urobilinogen 0.2 < = 1.0 MG/DL Urine Leukocyte Esterase 2+ H NEGATIVE Urine RBC (Auto) NEGATIVE NEGATIVE Urine RBC NONE /HPF Urine WBC 25-50 H /HPF Urine Squamous Epithelial Cells >50 H /HPF Urine Crystals NONE /LPF Urine Bacteria LARGE H /HPF Urine Casts NONE /LPF Urine Mucus NEGATIVE /LPF Urine Culture Indicated NO OB - Assessment/Plan/Diagnosis Assessment Assessment: induction of labor Admission Dx 27 yo @ 38.2 weeks Increased risk medication use in Borderline oligohydramnios GBS neg Admission Status: Inpatient Order (span 2 midnights) Reason for Inpatient Admission: IOL 38 weeks Plan Plan: Induction Induction Method: MARRY PATTERSON DO Dec 11, 2022 08:04
[2022-12-11] MEDS ORDERED: OXYTOCIN PRE-MIX DRIP 500 ML IV SCH (08:15)
[2022-12-11] MEDS ORDERED: HYDROmorphone 2 MG/ML VIAL (DILAUDID) ONE (11:11)
[2022-12-11] MEDS ORDERED: HYDROmorphone 2 MG/ML VIAL (DILAUDID) IV ONE (11:15)
[2022-12-11] MEDS ORDERED: fentaNYL 2 mcg/ml BUPIVA 0.125 100 ML ONE (12:27)
[2022-12-11] MEDS ORDERED: BUPIVACAINE 0.25% 10 ML (SENSORCAINE) VIAL ONE (12:46)
[2022-12-11] MEDS ORDERED: fentaNYL INJ 100 MCG/2 ML AMP ONE (12:46)
[2022-12-11] MEDS ORDERED: LACTATED RINGERS 1,000 ML IV ONE (13:15)
[2022-12-11] MEDS ORDERED: fentaNYL 2 mcg/ml BUPIVA 0.125 100 ML IV SCH (13:15)
[2022-12-11] MEDS ORDERED: CATHETER FLUSH 10 ML SYR IV PRN (13:15)
[2022-12-11] MEDS ORDERED: NALOXONE 0.4 MG/ML 1 ML (NARCAN) VIAL IV PRN ×2 (13:15→17:00)
[2022-12-11] MEDS ORDERED: ONDANSETRON 4 MG/2 ML (SDV) Z0FRAN ONE (13:18)
[2022-12-11] MEDS ORDERED: ONDANSETRON 4 MG/2 ML (SDV) Z0FRAN IVP PRN (13:30)
[2022-12-11] MEDS: CATHETER FLUSH 10 ML SYR IV SCH ×2 (14:00→22:30)
[2022-12-11] MEDS: OXYTOCIN PRE-MIX DRIP 500 ML IV SCH ×2 (16:49→17:19)
[2022-12-11] MEDS ORDERED: DIBUCAINE 1% OINTMENT 28 GM TUBE TOP PRN (17:00)
[2022-12-11] MEDS ORDERED: TETANUS,DIPTH,PERTUSS P/F (BOOSTRIX) 0.5 ML VIAL IM ONE (17:00)
[2022-12-11] MEDS ORDERED: MEASLES,MUMPS,RUBELLA 1 EA INJ SQ ONE (17:00)
[2022-12-11] MEDS ORDERED: WITCH HAZEL(TUCKS) 40 EA JAR TOP PRN (17:00)
[2022-12-11] MEDS ORDERED: BENZOCAINE/MENTHOL (DERMOPLAST) 56 ML CAN TP PRN (17:00)
--- NOTE | 2022-12-11 17:05 | OB Labor & Delivery Record ---
L&D History Date of Service Date of Service: Dec 11, 2022 History Expected Date of Delivery: Dec 23, 2022 Gestational Age in Weeks: 38 Hx : 3 Hx Para: 2 Complications Events: Routine care (Xanax exposure, Vraylar use.) Operative Indications (Cesarea: N/A-Vaginal Delivery Intrapartal Events: None L&D Stage1 Stage One Onset of Labor - Date: Dec 11, 2022 Monitors and Tracing Monitor Mode: External Heart Rate: 130 Monitor Accelerations: Uniform Monitor Decelerations: Early Station: -2 Fpc Variability: Average (6-10) Short Term Variability: Present Presentation: Vertex Vital Signs VS - Last 72 Hours, by Label 12/11/22 12/11/22 12/11/22 12/11/22 06:15 07:15 07:55 08:45 Temp 36.2 36.8 Pulse 118 113 98 Resp 18 18 18 B/P (MAP) 124/83 (97) 129/80 (96) Pulse Ox 97 O2 Delivery Room Air 12/11/22 12/11/22 12/11/22 12/11/22 09:00 09:45 10:00 10:15 Pulse 98 103 107 106 Resp 18 18 18 18 B/P (MAP) 132/78 (96) 129/77 (94) 131/82 (98) 138/84 (102) 12/11/22 12/11/22 12/11/22 12/11/22 10:30 10:45 11:00 11:15 Temp 36.7 Pulse 99 100 99 98 Resp 18 18 18 18 B/P (MAP) 144/89 (107) 128/84 (99) 131/69 (89) 138/76 (96) 12/11/22 12/11/22 12/11/22 12/11/22 11:30 11:45 12:00 12:15 Pulse 102 99 106 95 Resp 18 18 18 18 B/P (MAP) 119/80 (93) 118/73 (88) 137/87 (104) 124/71 (88) 12/11/22 12/11/22 12/11/22 12/11/22 12:45 12:58 13:02 13:05 Temp 36.3 Pulse 95 89 91 104 Resp 18 18 18 18 B/P (MAP) 123/60 (81) 134/80 (98) 128/75 (92) 126/68 (87) Pulse Ox 98 99 99 O2 Delivery Room Air Room Air Room Air 12/11/22 12/11/22 12/11/22 12/11/22 13:08 13:11 13:14 13:17 Pulse 104 107 107 117 Resp 18 18 18 18 B/P (MAP) 129/75 (93) 125/81 (96) 135/82 (99) 140/84 (102) Pulse Ox 98 98 98 97 O2 Delivery Room Air Room Air Room Air Room Air 12/11/22 12/11/22 12/11/22 12/11/22 13:20 13:25 13:30 13:35 Pulse 127 111 106 109 Resp 18 18 18 18 B/P (MAP) 149/67 (94) 134/65 (88) 130/67 (88) 139/68 (91) Pulse Ox 97 98 96 96 O2 Delivery Room Air Room Air Room Air Room Air 12/11/22 12/11/22 12/11/22 12/11/22 13:40 13:45 13:50 13:55 Pulse 106 114 109 101 Resp 18 18 18 18 B/P (MAP) 130/65 (86) 118/56 (76) 127/70 (89) 135/77 (96) Pulse Ox 96 96 96 96 O2 Delivery Room Air Room Air Room Air Room Air 12/11/22 12/11/22 12/11/22 12/11/22 14:15 14:30 14:45 15:00 Pulse 105 93 95 82 Resp 18 18 18 18 B/P (MAP) 122/69 (86) 127/77 (94) 107/58 (74) 104/58 (73) O2 Delivery Room Air Room Air Room Air Room Air 12/11/22 15:15 Temp 36.4 Pulse 100 Resp 18 B/P (MAP) 100/59 (73) O2 Delivery Room Air Rupture of Membranes Spontaneous Ruture of Membrane: No Amniotic Membrane Rupture Time: 0750 Amniotic Membrane Fluid Desc.: Clear Vaginal Bleeding Description: Normal Show Induction/Anesthesia Epidural Cath Placement - Time: 1258 Progress/Notes Patient admitted for IOL. AROM performed this AM. Epidural obtained and labor augmentation started with low dose IV pitocin protocol. She progressed throughout the day to complete and + 1 station. L&D Stage2 Stage Two Stage II Date: Dec 11, 2022 Monitors and Tracing Monitor Mode: External Heart Rate: 130 Monitor Accelerations: Uniform Monitor Decelerations: Variable Fpc Variability: Average (6-10) Short Term Variability: Present Position: Right Occiput Anterior Presentation: Vertex Cord Descript/Complications Cord Vessel Description: 3 Vessels Delivery Type Infant Delivery Method: Spontaneous Vaginal Anterior Shoulder: Left Episiotomy/Perineal Laceration Laceraction(s)/Extensions: Yes Episiotomy Description: Perineal Extension/lac, 2nd degree Degree (describe repair) 2nd degree perineal laceration repaired using 3-0 rapide in usual fashion. Condition of Delivery 1 minute Comment: 8 5 minute Comment: 9 Notes Live female weight pending Condition of Infant Condition of : Living Exam: No Observed Abnormalities Resuscitation Resuscitation: N/A - Spontaneous Resp L&D Stage3 Stage Three Stage III Date: Dec 11, 2022 Pictocin Pitocin Administration mu/min: 10 Pitocin ml/hr: 10 Pitocin Administration Comment: 30 mu wide open after placenta delivered Placenta Delivery Placenta Delivery: Spontaneous Delivery Summary Summary Estimated blood loss (mL): 300 Attending at delivery: Marry Jones DO Condition of Delivery Examined: Cervix Examined, Uterus Explored Post Hemorrhage: No Condition of Mother stable Condition of Infant (s) stable MARRY JONES DO Dec 11, 2022 17:05
--- NOTE | 2022-12-11 17:07 | Discharge Inst-Women's Service ---
Discharge Inst-Women's Serv Depart Medication/Instructions New, Converted or Re-Newed RX: Transmitted to Pharmacy Final Diagnosis PPD 1 NVD Problems Reviewed?: Yes Consults/Follow Up Additional Follow Up: Yes Orders/Referrals Dr. Rahman in 6 weeks Activity Activity: Activity as Tolerated Driving Instructions: No Driving for 1 Week NO SMOKING: NO SMOKING Nothing Inside Vagina: No Douching, No [place], No Tampons Diet Discharge Diet: No Restrictions Symptoms to Report to : Bleeding Excessive, Pain Increased, Fever Over 101 Degrees F, Vaginal Bleeding Increase, Questions/Concerns For Any Problems or Questions: Contact Your Physician Skin/Wound Care Stitches/Soham/Dermabond: Dermabond, Care of Stitches Bathing Instructions: MARRY Manrique DO Dec 11, 2022 17:07
[2022-12-11] MEDS: IBUPROFEN 600 MG (MOTRIN) TAB PO SCH (18:44)
[2022-12-11] MEDS: DOCUSATE SODIUM 100 MG (COLACE) CAP PO SCH (21:04)
[2022-12-11] MEDS: HYDROcodone/APAP 5 MG/325 MG (LORTAB) TAB PO PRN (21:04)
[2022-12-11] MEDS ORDERED: CATHETER FLUSH 10 ML SYR IV SCH (22:00)
[2022-12-12 00:27] VITALS: BP 130/78
[2022-12-12] MEDS: IBUPROFEN 600 MG (MOTRIN) TAB PO SCH ×4 (00:27→18:00)
[2022-12-12] MEDS: HYDROcodone/APAP 5 MG/325 MG (LORTAB) TAB PO PRN ×4 (00:29→16:56)
[2022-12-12 04:25] VITALS: BP 108/74
[2022-12-12 05:31] LABS: BASOPHILS # (AUTO) 0.1 10^3/uL (0.0-0.1); BASOPHILS % (AUTO) 1 % (0-10); EOSINOPHILS # (AUTO) 0.1 10^3/uL (0.0-0.3); EOSINOPHILS % (AUTO) 1 % (0-10); HEMATOCRIT 31 % (35-52); LYMPHOCYTES % (AUTO) 22 % (12-44); MEAN CORPUSCULAR HEMOGLOBIN 28 pg (25-34); MEAN CORPUSCULAR HGB CONC 32 g/dL (32-36); MEAN CORPUSCULAR VOLUME 89 fL (80-99); MEAN PLATELET VOLUME 11.9 fL (9.0-12.2); MONOCYTES # (AUTO) 1.1 10^3/uL (0.0-1.0); MONOCYTES % (AUTO) 8 % (0-12); NEUTROPHILS # (AUTO) 9.3 10^3/uL (1.8-7.8); NEUTROPHILS % (AUTO) 67 % (42-75); PLATELET COUNT 190 10^3/uL (130-400); WHITE BLOOD COUNT 13.9 10^3/uL (4.3-11.0)
[2022-12-12] MEDS ORDERED: PRENATAL VITAMIN 1 EA TAB PO SCH (07:00)
[2022-12-12 08:30] VITALS: BP 112/63
[2022-12-12] MEDS: DOCUSATE SODIUM 100 MG (COLACE) CAP PO SCH (08:35)
[2022-12-12] MEDS ORDERED: FERROUS SULF 325 MG (IRON) TAB PO SCH (09:00)
--- NOTE | 2022-12-12 09:13 | Anesthesia-Regional Post-Op ---
Regional Patient Condition Mental Status: Alert, Oriented x3 Circulation: Same as Pre-Op Headache: Absent Sensation: Full Recovery Motor Block: Absent Post Op Complications Complications None Follow Up Care/Instructions Patient Instructions None needed. Anesthesia/Patient Condition Patient is doing well, no complaints, stable vital signs, no apparent adverse anesthesia problems. No complications reported per nursing. MAURISIO MEJIA CRNA Dec 12, 2022 09:13
--- NOTE | 2022-12-12 09:54 | Postpartum Progress Note ---
Note Note Day # 1 Subjective: Patient is without complaints. Ambulating, voiding. Tolerating a regular diet without nausea or vomiting. Normal lochia. Pain is well controlled with oral pain medications. Objective: Physical Exam: General - Alert and oriented, no apparent distress Abdomen - Soft, appropriately tender to palpation, non-distended, fundus firm at umbilicus Extremities - no edema, negative Konstantin's bilaterally Assessment: PPD 1 NVD Acute blood loss anemia Plan: Routine care. Encourage breast feeding. Encourage ambulation. Ferrous sulfate supplementation. Plan for discharge today Vitals - Labs Vital Signs - I&O Vital Signs Date Time Temp Pulse Resp B/P (MAP) Pulse Ox O2 Delivery O2 Flow Rate FiO2 12/12/22 04:25 36.8 86 18 108/74 (85) 98 Room Air 12/12/22 00:27 36.3 89 18 130/78 (95) 99 Room Air 12/11/22 20:10 36.9 101 18 134/73 (93) Room Air 12/11/22 18:45 104 18 127/82 (97) Room Air 12/11/22 18:30 36.6 96 18 124/61 (82) Room Air 12/11/22 18:15 91 18 136/63 (87) Room Air 12/11/22 18:00 93 18 127/62 (83) Room Air 12/11/22 17:30 94 18 128/58 (81) Room Air 12/11/22 17:15 36.8 100 18 134/76 (95) Room Air 12/11/22 17:00 96 18 125/70 (88) Room Air 12/11/22 16:45 129 18 120/72 (88) Room Air 12/11/22 16:30 100 18 118/66 (83) Room Air 12/11/22 16:15 101 18 118/73 (88) Room Air 12/11/22 16:00 90 18 100/63 (75) Room Air 12/11/22 15:45 111 18 94/61 (72) Room Air 12/11/22 15:30 108 18 126/70 (88) Room Air 12/11/22 15:15 36.4 100 18 100/59 (73) Room Air 12/11/22 15:00 82 18 104/58 (73) Room Air 12/11/22 14:45 95 18 107/58 (74) Room Air 12/11/22 14:30 93 18 127/77 (94) Room Air 12/11/22 14:15 105 18 122/69 (86) Room Air 12/11/22 13:55 101 18 135/77 (96) 96 Room Air 12/11/22 13:50 109 18 127/70 (89) 96 Room Air 12/11/22 13:45 114 18 118/56 (76) 96 Room Air 12/11/22 13:40 106 18 130/65 (86) 96 Room Air 12/11/22 13:35 109 18 139/68 (91) 96 Room Air 12/11/22 13:30 106 18 130/67 (88) 96 Room Air 12/11/22 13:25 111 18 134/65 (88) 98 Room Air 12/11/22 13:20 127 18 149/67 (94) 97 Room Air 12/11/22 13:17 117 18 140/84 (102) 97 Room Air 12/11/22 13:14 107 18 135/82 (99) 98 Room Air 12/11/22 13:11 107 18 125/81 (96) 98 Room Air 12/11/22 13:08 104 18 129/75 (93) 98 Room Air 12/11/22 13:05 36.3 104 18 126/68 (87) 99 Room Air 12/11/22 13:02 91 18 128/75 (92) 99 Room Air 12/11/22 12:58 89 18 134/80 (98) 98 Room Air 12/11/22 12:45 95 18 123/60 (81) 12/11/22 12:15 95 18 124/71 (88) 12/11/22 12:00 106 18 137/87 (104) 12/11/22 11:45 99 18 118/73 (88) 12/11/22 11:30 102 18 119/80 (93) 12/11/22 11:15 98 18 138/76 (96) 12/11/22 11:00 36.7 99 18 131/69 (89) 12/11/22 10:45 100 18 128/84 (99) 12/11/22 10:30 99 18 144/89 (107) 12/11/22 10:15 106 18 138/84 (102) 12/11/22 10:00 107 18 131/82 (98) I & O 12/12/22 07:00 Intake Total 3000 ml Balance 3000 ml Labs Laboratory Tests 12/12/22 05:00: White Blood Count 13.9H, Red Blood Count 3.55L, Hemoglobin 10.0L, Hematocrit 31L , Mean Corpuscular Volume 89, Mean Corpuscular Hemoglobin 28, Mean Corpuscular Hemoglobin Concent 32, Red Cell Distribution Width 15.0H, Platelet Count 190, Mean Platelet Volume 11.9, Immature Granulocyte % (Auto) 2, Neutrophils (%) (Auto) 67, Lymphocytes (%) (Auto) 22, Monocytes (%) (Auto) 8, Eosinophils (%) (Auto) 1, Basophils (%) (Auto) 1, Neutrophils # (Auto) 9.3H, Lymphocytes # (Auto) 3.0, Monocytes # (Auto) 1.1H, Eosinophils # (Auto) 0.1, Basophils # (Auto) 0.1, Immature Granulocyte # (Auto) 0.3H MARRY JONES DO Dec 12, 2022 09:54
[2022-12-12] MEDS ORDERED: ACHD5005 PO (09:55)
[2022-12-12] MEDS ORDERED: DOCU100C37 PO (09:55)
[2022-12-12] MEDS ORDERED: DIBU30OI TOP (09:55)
[2022-12-12] MEDS ORDERED: BENZ78AE5 TP (09:55)
[2022-12-12] MEDS ORDERED: IBUP-844 PO (09:55)
[2022-12-12 11:24] VITALS: BP 121/82
[2022-12-12 16:00] VITALS: BP 132/80
[2022-12-12 19:05] VITALS: BP 132/80
== END 2022-12-12 19:05 | disposition home or self-care (01) | DRG 806 ==
LOC: LDRP 06:00
PROVIDERS: ADMIT Obstetrics & Gynecology; ATTEND Obstetrics & Gynecology
PROC: 10E0XZZ Delivery of Products of Conception, External Approach (ICD-10-PCS; principal; 2022-12-11)
PROC: 0KQM0ZZ Repair Perineum Muscle, Open Approach (ICD-10-PCS; 2022-12-11)
PROC: 10907ZC Drainage of Amniotic Fluid, Therapeutic from Products of Conception, Via Natural or Artificial Opening (ICD-10-PCS; 2022-12-11)
DX: O41.03X0 Oligohydramnios, third trimester, not applicable or unspecified (principal); D62 Acute posthemorrhagic anemia; Z37.0 Single live birth; Z3A.38 38 weeks gestation of pregnancy; O70.1 Second degree perineal laceration during delivery; O99.344 Other mental disorders complicating childbirth; F31.9 Bipolar disorder, unspecified; F41.9 Anxiety disorder, unspecified; O90.81 Anemia of the puerperium; Z79.899 Other long term (current) drug therapy; Z28.310 Unvaccinated for COVID-19
CPT/HCPCS: 36415; 81000; 85025; 86780; 86850; 86900; 86901

== ENCOUNTER 2023-03-08 15:00 | Emergency (ER) | payer MEDICAID ==
[~2023-03-08] VITALS: Ht 162.5 cm; Wt 86.9 kg
[~2023-03-08 15:00] MED LIST changes: +BENZ78AE5 TP; +DIBU30OI TOP; +IBUP-844 PO
[2023-03-08 15:03] VITALS: BP 115/84
--- NOTE | 2023-03-08 15:25 | ED Lower Extremity ---
General Chief Complaint: Lower Extremity Stated Complaint: LT TOE INJ Nursing Triage Note: Patient c/o laceration to Lt. great toe that happened prior to arrival to ER. Patient states she cut her Lt. great toe on a metal rake. Patient denies cleaning wound prior to coming to ER. Patient states her tetanus is less than 5 yrs. Patient states she is able to move her Lt. great toe, but states it is painful to move. No bleeding from laceration to bottom of Lt. great toe upon arrival to ER. Source: patient Exam Limitations: no limitations History of Present Illness Date Seen by Provider: March 08, 2023 Time Seen by Provider: 15:25 Initial Comments 28yo female stepped on a rake outside while walking on concrete - sustained laceration to plantar surface of left great toe.. She states her tetanus is up to date (within the last 5 years). She did not injure herself or fall. Onset: just prior to arrival Severity: moderate Pain/Injury Location: left 1st toe Method of Injury: direct blow Allergies and Home Medications Allergies Coded Allergies: No Known Drug Allergies (Unverified , 05/25/17) Patient Home Medication List Home Medication List Reviewed: Yes Benzocaine/Menthol (Dermoplast Pain Relieving [place]) 20 %-0.5 % Aerosol, 1 EA TP UD PRN for PAIN- SEE INSTRUCTIONS Prescribed by: MARRY JONES on 12/12/22 0955 Cariprazine Hydrochloride (Vraylar) 1.5 Mg Capsule, 1.5 MG PO DAILY, (Reported) Entered as Reported by: GIL DOWNS on 10/27/22 1411 Dibucaine (Dibucaine) 1 % Oint, 1 GM TOP UD PRN for PAIN- SEE INSTRUCTIONS Prescribed by: MARRY JONES on 12/12/22 0955 Docusate Sodium (Docusate Sodium) 100 Mg Capsule, 100 MG PO BID PRN for CONSTIPATION-1ST LINE Prescribed by: MARRY JONES on 12/12/22 09 Hydrocodone/Acetaminophen (Hydrocodone-Acetamin 5-325 mg) 5 Mg-325 Mg Tablet, 1 EA PO Q4H PRN for PAIN-MODERATE (5-7) Prescribed by: MRARY JONES on 12/12/22 09 Ibuprofen (Ibu) 600 Mg Tablet, 600 MG PO Q6H Prescribed by: MARRY JONES on 12/12/22 0955 Vit No.124/Iron/FA ( Vitamin Tablet) 1 Each Tablet, 1 EACH PO DAILY, (Reported) Entered as Reported by: KATE ZARAGOZA on 04/18/181943 Review of Systems Constitutional: see HPI Skin: other (laceration) Past Vglvbxc-Hzngim-Hppioj Hx Seasonal Allergies Seasonal Allergies: Yes Past Medical History Surgeries: Yes Appendectomy Respiratory: No Cardiac: No Neurological: No Last Menstrual Period: March 01, 2023 Sexually Transmitted Disease: Yes (herpes) Genitourinary: No Gastrointestinal: No Musculoskeletal: No Endocrine: No HEENT: No Cancer: No Psychosocial: No Integumentary: No Blood Disorders: No Family Medical History Patient reports no known family medical history. No Pertinent Family Hx Physical Exam Vital Signs Vital Signs - First Documented 03/08/23 15:03 Temp 36.2 Pulse 105 Resp 12 B/P (MAP) 115/84 (94) Pulse Ox 99 O2 Delivery Room Air Capillary Refill : Height, Weight, BMI Height: 5'4.00" Weight: 190lbs. 4.0oz. [id number]; 32.00 BMI Method:Stated General Appearance: WD/WN, no apparent distress Neck: full range of motion Cardiovascular: regular rate, rhythm Respiratory: no respiratory distress, no accessory muscle use Feet: left foot other (Curvilinear flap-like laceration (1.5cm) at the base of the plantar surface of the great toe. No active bleeding. Is not gaping. Tender to palpation) Neurologic/Tendon: normal sensation, normal motor functions Neurologic/Psychiatric: alert, normal mood/affect, oriented x 3 Skin: normal color, warm/dry Procedures/Interventions Wound Location: Lower Extremities Other Wound Location left great toe - plantar surface Wound Length (cm): 1.5 Wound's Depth, Shape: flap Wound Explored: clean Other Closure Supply: Wound Adhesive Progress wound soaked and cleaned for 30min; dried thoroughly and closed with skin afix Progress/Results/Core Measures Results/Orders My Orders Orders - MARY ANNE BERMUDEZ MD Tramadol Tablet (Ultram Tablet) (03/08/23 16:30) Vital Signs/I&O 03/08/23 15:03 Temp 36.2 Pulse 105 Resp 12 B/P (MAP) 115/84 (94) Pulse Ox 99 O2 Delivery Room Air Blood Pressure Mean: 94 Departure Impression Primary Impression: Laceration of great toe Qualified Codes: S91.112A - Laceration without foreign body of left great toe without damage to nail, initial encounter Disposition: 01 HOME, SELF-CARE Condition: Stable Departure-Patient Inst. Decision time for Depature: 15:49 Referrals: [facility] (PCP/Family) Primary Care Physician Patient Instructions: Laceration Repair With Glue ED Add. Discharge Instructions: Keep the wound clean dry and covered to help prevent infection. I have covered it in skin glue. Do not put neosporin on it, as the ointment will take the glue off. After showering, dry the cut thoroughly. Monitor for signs of infection. If the wound becomes swollen, red, streaking up the foot, please return to the ER for re-evaluation. Please follow up with your primary care physician. Scripts Tramadol HCl (Tramadol HCl) 50 Mg Tablet 50 MG PO Q6H PRN for PAIN, #6 TAB 0 Refills Prov: MARY ANNE BERMUDEZ MD 03/08/23 Copy Copies To 1: FAREED BUI KATHRYN M MD March 08, 2023 15:25
[2023-03-08] MEDS ORDERED: TRM50T PO (16:30)
== END 2023-03-08 16:57 | disposition home or self-care (01) ==
LOC: EDUNIT# 15:00 → ER 15:02
DX: S91.112A Laceration without foreign body of left great toe without damage to nail, initial encounter (principal); Z28.310 Unvaccinated for COVID-19; W26.9XXA Contact with unspecified sharp object(s), initial encounter
CPT/HCPCS: 99283